=== PATIENT | male | born 1945 | race Caucasian/White ===

== ENCOUNTER 2016-09-25 12:15 | Emergency (ER) | payer MEDICARE, OTHER ==
[2016-09-25 12:30] VITALS: BP 120/73
--- NOTE | 2016-09-25 14:17 | EDM.PDOC ---
ED HPI GENERAL MEDICAL PROBLEM - General Chief Complaint: Chest Pain Stated Complaint: CHEST DISCOMFORT Time Seen by Provider: 09/25/16 12:28 Source of Information: Reports: Patient History Limitations: Reports: No Limitations - History of Present Illness INITIAL COMMENTS - FREE TEXT/NARRATIVE: History of present illness: [70-year-old male presenting with an episode of chest pain actually to that occurred this morning that were very brief lasting perhaps 5 minutes. They were pressure-like in nature and resolve spontaneously he called the conventions reservationist that was elderly companion for his conventions reservationist a deniz Freire and they suggested he come in. He was recently switched from flecainide and diltiazem to sotalol after having an angiogram at which time stenting was not undertaken but there may have been some sort of cleaning out of the artery "that occurred according to the patient and his . He was also told that there was evidence that she has had heart damage in the past. But no further clarification of exactly what is meant by that is available to me here today. 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 Past medical history: As per history of present illness and as reviewed below otherwise noncontributory. Surgical history: As per history of present illness and as reviewed below otherwise noncontributory. Social history: No reported history of drug or alcohol abuse. Family history: As per history of present illness and as reviewed below otherwise noncontributory. Physical exam: HEENT: Atraumatic, normocephalic, pupils reactive, negative for conjunctival pallor or scleral icterus, mucous membranes moist, throat clear, neck supple, nontender, trachea midline. Lungs: Clear to auscultation, breath sounds equal bilaterally, chest nontender. Heart: S1S2, regular, negative for clicks, rubs, or JVD. Abdomen: Soft, nondistended, nontender. Negative for masses or hepatosplenomegaly. Negative for costovertebral tenderness. Pelvis: Stable nontender. Genitourinary: Deferred. Rectal: Deferred. Extremities: Atraumatic, negative for cords or calf pain. Neurovascular unremarkable. Neuro: Awake, alert, oriented. Cranial nerves II through XII unremarkable. Cerebellum unremarkable. Motor and sensory unremarkable throughout. Exam nonfocal. Diagnostics: [EKG shows no current of injury or ischemia. He was slightly bradycardic but that is his baseline. He is QT interval was acceptable. Troponin was negative d- dimer was negative CBC complete medical panel were unremarkable. Chest x-ray was also unremarkable] Therapeutics: [] Impression: [Atypical chest pain] Plan: [I discussed with him the more typical symptoms of coronary artery disease and angina and coronary artery syndrome and if these occur he is to return to the emergency room. He does have a follow-up appointment with his conventions reservationist in October.] Definitive disposition and diagnosis as appropriate pending reevaluation and review of above. chest Pain Score (Numeric/FACES): 1 - Related Data Allergies Allergy/AdvReac Type Severity Reaction Status Date / Time atorvastatin calcium Allergy Other Verified 09/25/16 12:30 [From Lipitor] morphine Allergy Bradycardia Verified 09/25/16 12:30 Home Meds: Home Meds Aspirin 81 mg PO DAILY 11/30/15 [History] Sotalol [Betapace, Sorine] 80 mg PO BID 09/25/16 [History] Past Medical History HEENT History: Reports: Hard of Hearing, Impaired Vision Cardiovascular History: Reports: Arrhythmia, [place] Genitourinary History: Reports: Renal Calculus Neurological History: Reports: TIA Oncologic (Cancer) History: Reports: Colon - Infectious Disease History Infectious Disease History: Reports: Chicken Pox - Past Surgical History Cardiovascular Surgical History: Reports: Other (See Below) Other Cardiovascular Surgeries/Procedures: angiogram GI Surgical History: Reports: Hernia, Abdominal Musculoskeletal Surgical History: Reports: Arthroscopic Knee Social & Family History - Tobacco Use Smoking Status *Q: Never Smoker - Caffeine Use Caffeine Use: Reports: Coffee - Alcohol Use Days Per Week of Alcohol Use: 5 Number of Drinks Per Day: 1 Total Drinks Per Week: 5 - Recreational Drug Use Recreational Drug Use: No ED ROS GENERAL - Review of Systems Review Of Systems: ROS reveals no pertinent complaints other than HPI. ED EXAM, GENERAL - Physical Exam Exam: See Below Course - Vital Signs Last Recorded V/S: Last Vital Signs Temp 36.7 C 09/25/16 12:29 Pulse 51 L 09/25/16 12:29 Resp 16 09/25/16 12:29 BP 120/73 09/25/16 12:29 Pulse Ox 98 09/25/16 12:29 - Orders/Labs/Meds Orders: Active Orders 24 hr Category Date Time Status EKG Documentation Completion [RC] ASDIRECTED Care 09/25/16 12:35 Active Chest 1V Frontal [CR] Stat Exams 09/25/16 12:35 Taken EKG 12 Lead [EK] Stat Ther 09/25/16 12:35 Ordered Labs: Laboratory Tests 09/25/16 09/25/16 09/25/16 Range/Units 12:49 12:49 12:49 WBC 6.9 (4.5-11.0) K/uL RBC 4.52 (4.30-5.90) M/uL Hgb 14.7 (12.0-15.0) g/dL Hct 42.6 (40.0-54.0) % MCV 94 (80-98) fL MCH 33 H (27-31) pg MCHC 35 (32-36) % Plt Count 178 (150-400) K/uL Neut % (Auto) 64 (36-66) % Lymph % (Auto) 23 L (24-44) % Harris % (Auto) 10 H (2-6) % Eos % (Auto) 3 (2-4) % Baso % (Auto) 1 (0-1) % PT 10.7 (9.5-12.0) sec INR 1.00 (0.80-1.20) D-Dimer, Quantitative < 100 (0.0-400.0) ng/mL Sodium (140-148) mmol/L Potassium (3.6-5.2) mmol/L Chloride (100-108) mmol/L Carbon Dioxide (21-32) mmol/L Anion Gap (5.0-14.0) mmol/L BUN (7-18) mg/dL Creatinine (0.8-1.3) mg/dL Est Cr Clr Drug Dosing mL/min Estimated GFR (MDRD) (>60) Glucose (74-106) mg/dL Calcium (8.5-10.1) mg/dL Total Bilirubin (0.2-1.0) mg/dL AST (15-37) U/L ALT (12-78) U/L Alkaline Phosphatase (46-116) U/L Troponin I (0.000-0.056) ng/mL [id number] Pept (5-125) pg/mL Total Protein (6.4-8.2) g/dL Albumin (3.4-5.0) g/dL Globulin (2.3-3.5) g/dL Albumin/Globulin Ratio (1.2-2.2) 09/25/16 Range/Units 12:49 WBC (4.5-11.0) K/uL RBC (4.30-5.90) M/uL Hgb (12.0-15.0) g/dL Hct (40.0-54.0) % MCV (80-98) fL MCH (27-31) pg MCHC (32-36) % Plt Count (150-400) K/uL Neut % (Auto) (36-66) % Lymph % (Auto) (24-44) % Harris % (Auto) (2-6) % Eos % (Auto) (2-4) % Baso % (Auto) (0-1) % PT (9.5-12.0) sec INR (0.80-1.20) D-Dimer, Quantitative (0.0-400.0) ng/mL Sodium 142 (140-148) mmol/L Potassium 4.1 (3.6-5.2) mmol/L Chloride 105 (100-108) mmol/L Carbon Dioxide 31 (21-32) mmol/L Anion Gap 6.3 (5.0-14.0) mmol/L BUN 15 (7-18) mg/dL Creatinine 1.0 (0.8-1.3) mg/dL Est Cr Clr Drug Dosing 76.52 mL/min Estimated GFR (MDRD) > 60 (>60) Glucose 91 (74-106) mg/dL Calcium 7.9 L (8.5-10.1) mg/dL Total Bilirubin 0.6 (0.2-1.0) mg/dL AST 21 (15-37) U/L ALT 26 (12-78) U/L Alkaline Phosphatase 79 (46-116) U/L Troponin I < 0.017 (0.000-0.056) ng/mL Nid-W-Bwcsonskpja Pept 134 H (5-125) pg/mL Total Protein 6.4 (6.4-8.2) g/dL Albumin 3.1 L (3.4-5.0) g/dL Globulin 3.3 (2.3-3.5) g/dL Albumin/Globulin Ratio 0.9 L (1.2-2.2) Departure - Departure Time of Disposition: 14:16 Disposition: Home, Self-Care 01 Condition: Good Clinical Impression: Atypical chest pain Forms: ED Department Discharge Additional Instructions: It was a pleasure to meet you when I wish you the best in the future. As we discussed if he develops symptoms that there are more typical for heart pains then you will need to return to the emergency room for evaluation. Thank you for your service to our country. - My Orders Last 24 Hours: My Active Orders 09/25/16 12:35 EKG Documentation Completion [RC] ASDIRECTED Chest 1V Frontal [CR] Stat EKG 12 Lead [EK] Stat - Assessment/Plan Last 24 Hours: My Active Orders 09/25/16 12:35 EKG Documentation Completion [RC] ASDIRECTED Chest 1V Frontal [CR] Stat EKG 12 Lead [EK] Stat
--- NOTE | 2016-09-26 13:23 | CR ---
Chest 1V Frontal INDICATION: chest pain FINDINGS: Negative AP portable chest x-ray.
== END 2016-09-25 14:30 | disposition home or self-care (01) ==
LOC: JP.ED 12:15
DX: R07.89 Other chest pain (principal); H54.7 Unspecified visual loss; I25.2 Old myocardial infarction; Z87.442 Personal history of urinary calculi; Z86.73 Personal history of transient ischemic attack (TIA), and cerebral infarction without residual deficits; Z79.82 Long term (current) use of aspirin; Z98.890 Other specified postprocedural states; Z88.5 Allergy status to narcotic agent; Z88.8 Allergy status to other drugs, medicaments and biological substances
CPT/HCPCS: 36415; 71010; 71010-26; 80053; 83880; 84484; 85025; 85379; 85610; 93005; 93010; 99283; 99285-25

== ENCOUNTER 2016-11-30 17:52 | Emergency (ER) | payer MEDICARE, OTHER ==
[2016-11-30] MEDS ORDERED: diphenhydrAMINE 50 MG/ML SDV IVPUSH ONE (18:27)
[2016-11-30] MEDS ORDERED: Sodium Chloride 0.9% 10 ML Syringe FLUSH PRN (18:27)
[2016-11-30] MEDS ORDERED: Sodium Chloride 0.9% 1,000 ML IV SCH (19:00)
[2016-11-30 19:56] VITALS: BP 139/84
--- NOTE | 2016-11-30 20:35 | EDM.PDOC ---
ED HPI GENERAL MEDICAL PROBLEM - General Chief Complaint: Bite:Animal, Insect Stated Complaint: STUNG BY BEE IN MOUTH Time Seen by Provider: 11/30/16 18:17 Source of Information: Reports: Patient History Limitations: Reports: No Limitations - History of Present Illness INITIAL COMMENTS - FREE TEXT/NARRATIVE: History of present illness: [71-year-old male presents with a bee sting in his mouth 3. He was sitting outside sipping on some wine was of the is class and start him on the right lower lip and on the tongue couple times. He presents here with a swollen lip and swollen tongue concerned about his airway. His states that he reacts little more severely to bee stings then most people but has not had an anaphylactic reaction to bee stings.] Review of systems: As per history of present illness and below otherwise all systems reviewed and negative. Past medical history: As per history of present illness and as reviewed below otherwise noncontributory. Surgical history: As per history of present illness and as reviewed below otherwise noncontributory. Social history: No reported history of drug or alcohol abuse. Family history: As per history of present illness and as reviewed below otherwise noncontributory. Physical exam: HEENT: Atraumatic, normocephalic, his tongue was swollen slightly and his right lower lip was also swollen twice the size of the normal he also had some swelling of the soft palate posteriorly but his airway was open and he was in no respiratory distress Lungs: Clear to auscultation, breath sounds equal bilaterally Heart: S1S2, regular, negative for clicks, rubs, or JVD. Abdomen: Soft, nondistended, nontender. Negative for masses or hepatosplenomegaly Pelvis: Stable nontender. Genitourinary: Deferred. Rectal: Deferred. Extremities: Atraumatic Neurovascular unremarkable. Neuro: Awake, alert, oriented. Exam nonfocal. Diagnostics: [] Therapeutics: [Patient received IV fluids and IV Benadryl and was observed in felt the swelling subsiding and abating while here. ] Impression: [Bee sting] Plan: [Patient is provided with prednisone 10 mg 2 by mouth daily for 3 days. He can also use [id number] Benadryl return to the ER if he develops any respiratory distress] Definitive disposition and diagnosis as appropriate pending reevaluation and review of above. Face Pain Score (Numeric/FACES): 5 - Related Data Allergies Allergy/AdvReac Type Severity Reaction Status Date / Time atorvastatin calcium Allergy Other Verified 09/25/16 12:30 [From Lipitor] morphine Allergy Bradycardia Verified 09/25/16 12:30 Home Meds: Home Meds Aspirin 81 mg PO DAILY 11/30/15 [History] Sotalol [Betapace, Sorine] 80 mg PO BID 09/25/16 [History] Past Medical History HEENT History: Reports: Hard of Hearing, Impaired Vision Cardiovascular History: Reports: Arrhythmia, [place] Genitourinary History: Reports: Renal Calculus Neurological History: Reports: TIA Oncologic (Cancer) History: Reports: Colon - Infectious Disease History Infectious Disease History: Reports: Chicken Pox, Measles, Mumps - Past Surgical History Cardiovascular Surgical History: Reports: Other (See Below) Other Cardiovascular Surgeries/Procedures: angiogram GI Surgical History: Reports: Hernia, Abdominal Musculoskeletal Surgical History: Reports: Arthroscopic Knee Social & Family History - Tobacco Use Smoking Status *Q: Never Smoker - Caffeine Use Caffeine Use: Reports: None - Alcohol Use Days Per Week of Alcohol Use: 5 Number of Drinks Per Day: 1 Total Drinks Per Week: 5 - Recreational Drug Use Recreational Drug Use: No ED ROS GENERAL - Review of Systems Review Of Systems: ROS reveals no pertinent complaints other than HPI. ED EXAM, ANIMAL BITE - Physical Exam Exam: See Below Course - Vital Signs Last Recorded V/S: Last Vital Signs Temp 36.1 C 11/30/16 18:08 Pulse 56 L 11/30/16 19:56 Resp 16 11/30/16 18:08 BP 139/84 11/30/16 19:56 Pulse Ox 96 11/30/16 19:56 - Orders/Labs/Meds Orders: Active Orders 24 hr Category Date Time Status Sodium Chloride 0.9% [Normal Saline] 1,000 ml Med 11/30/16 19:00 Active IV ASDIRECTED Sodium Chloride 0.9% [Saline Flush] Med 11/30/16 18:27 Active 10 ml FLUSH ASDIRECTED PRN Saline Lock Insert [OM.PC] Stat Oth 11/30/16 18:27 Ordered Medication Orders Sodium Chloride (Normal Saline) 1,000 mls @ 500 mls/hr IV ASDIRECTED DAVID Last Admin: 11/30/16 18:59 Dose: 500 mls/hr Sodium Chloride (Saline Flush) 10 ml FLUSH ASDIRECTED PRN PRN Reason: Keep Vein Open Last Admin: 11/30/16 18:45 Dose: 10 ml Meds: Medications Generic Name Dose Route Start Last Admin Trade Name Freq PRN Reason Stop Dose Admin Sodium Chloride 1,000 mls @ 500 mls/hr 11/30/16 19:00 11/30/16 18:59 Normal Saline IV 500 mls/hr ASDIRECTED DAVID Administration Sodium Chloride 10 ml 11/30/16 18:27 11/30/16 18:45 Saline Flush FLUSH 10 ml ASDIRECTED PRN Administration Keep Vein Open Discontinued Medications Generic Name Dose Route Start Last Admin Trade Name Filipeq PRN Reason Stop Dose Admin Diphenhydramine HCl 50 mg 11/30/16 18:27 11/30/16 18:45 Benadryl IVPUSH 11/30/16 18:28 50 mg ONETIME ONE Administration Departure - Departure Time of Disposition: 20:34 Disposition: Home, Self-Care 01 Condition: Good Clinical Impression: Bee sting Qualifiers: Encounter type: initial encounter Injury intent: accidental or unintentional Qualified Code(s): T63.441A - Toxic effect of venom of bees, accidental ( unintentional), initial encounter - Discharge Information Referrals: Damien Velázquez PA-C [Primary Care Provider] - Additional Instructions: You can use [id number] Benadryl in addition to the prednisone that were providing for you for the swelling that you're experiencing from the bee stings. Please return to the ER if you develop any trouble breathing. - My Orders Last 24 Hours: My Active Orders 11/30/16 18:27 Sodium Chloride 0.9% [Saline Flush] 10 ml FLUSH ASDIRECTED PRN Saline Lock Insert [OM.PC] Stat 11/30/16 19:00 Sodium Chloride 0.9% [Normal Saline] 1,000 ml IV ASDIRECTED - Assessment/Plan Last 24 Hours: My Active Orders 11/30/16 18:27 Sodium Chloride 0.9% [Saline Flush] 10 ml FLUSH ASDIRECTED PRN Saline Lock Insert [OM.PC] Stat 11/30/16 19:00 Sodium Chloride 0.9% [Normal Saline] 1,000 ml IV ASDIRECTED
== END 2016-11-30 20:44 | disposition home or self-care (01) ==
LOC: JP.ED 17:52
DX: T63.441A Toxic effect of venom of bees, accidental (unintentional), initial encounter (principal); R22.9 Localized swelling, mass and lump, unspecified; I25.2 Old myocardial infarction; H54.7 Unspecified visual loss; Z86.73 Personal history of transient ischemic attack (TIA), and cerebral infarction without residual deficits; Z79.82 Long term (current) use of aspirin
CPT/HCPCS: 96361; 96374; 99283; J1200; J7040; J7050

== ENCOUNTER 2017-10-08 05:48 | Emergency (ER) | payer MEDICARE, OTHER ==
[2017-10-08] MEDS ORDERED: Sodium Chloride 0.9% 10 ML Syringe FLUSH PRN (05:55)
[2017-10-08] MEDS ORDERED: methylPREDNISolone Sodium Succinate 125 MG/2 ML SDV IVPUSH ONE (05:55)
[2017-10-08] MEDS ORDERED: EPINEPHrine 1 MG/ML SDV IM ONE (05:55)
[2017-10-08] MEDS ORDERED: diphenhydrAMINE 50 MG/ML SDV IVPUSH ONE (05:55)
--- NOTE | 2017-10-08 06:15 | EDM.PDOC ---
ED HPI GENERAL MEDICAL PROBLEM - General Chief Complaint: Allergic Reaction Stated Complaint: REACTION Time Seen by Provider: 10/08/17 05:54 Source of Information: Reports: Patient History Limitations: Reports: No Limitations - History of Present Illness INITIAL COMMENTS - FREE TEXT/NARRATIVE: This man complains of an acute allergic reaction. His lip is swelling and his throat is closing up. It's getting a little hard to breathe. It has happened before. He thought maybe it was some oil he put on his 's back last pm. But later said that it started when he started taking sotalol. He stopped sotalol a few days ago. - Related Data Allergies Allergy/AdvReac Type Severity Reaction Status Date / Time atorvastatin calcium Allergy Other Verified 09/25/16 12:30 [From Lipitor] morphine Allergy Bradycardia Verified 09/25/16 12:30 sotalol Allergy Facial Verified 10/08/17 06:15 Swelling Home Meds: Home Meds Aspirin 81 mg PO DAILY 11/30/15 [History] Sotalol [Betapace, Sorine] 80 mg PO BID 09/25/16 [History] Past Medical History HEENT History: Reports: Hard of Hearing, Impaired Vision Cardiovascular History: Reports: Arrhythmia, [place] Genitourinary History: Reports: Renal Calculus Neurological History: Reports: TIA Oncologic (Cancer) History: Reports: Colon - Infectious Disease History Infectious Disease History: Reports: Chicken Pox, Measles, Mumps - Past Surgical History Cardiovascular Surgical History: Reports: Other (See Below) Other Cardiovascular Surgeries/Procedures: angiogram GI Surgical History: Reports: Hernia, Abdominal Musculoskeletal Surgical History: Reports: Arthroscopic Knee Social & Family History - Caffeine Use Caffeine Use: Reports: None ED ROS ALLERGIC REACTION - Review of Systems Review Of Systems: ROS reveals no pertinent complaints other than HPI. ED EXAM GENERAL NO PERIP PULSE - Physical Exam Exam: See Below Exam Limited By: No Limitations General Appearance: Alert, WD/WN, Mild Distress Eye Exam: Bilateral Eye: Normal Inspection Nose: Normal Inspection Throat/Mouth: Other (swelling RT side upper lip. Slight swelling uf uvula. voice a little hoarse. No oropharyngeal mucosal edema). No: Normal Lips, Normal Oropharynx Neck: Other (no definite stridor) Respiratory/Chest: Lungs Clear Cardiovascular: Regular Rate, Rhythm Neurological: Alert, Oriented Skin Exam: Warm, Dry Course - Vital Signs Last Recorded V/S: Last Vital Signs Temp 36.4 C 10/08/17 06:00 Pulse 56 L 10/08/17 06:50 Resp 15 10/08/17 06:50 BP 133/72 10/08/17 06:50 Pulse Ox 95 10/08/17 06:50 - Orders/Labs/Meds Orders: Active Orders 24 hr Category Date Time Status Sodium Chloride 0.9% [Saline Flush] Med 10/08/17 05:55 Active 10 ml FLUSH ASDIRECTED PRN Saline Lock Insert [OM.PC] Urgent Oth 10/08/17 05:55 Ordered Medication Orders Sodium Chloride (Saline Flush) 10 ml FLUSH ASDIRECTED PRN PRN Reason: Keep Vein Open Last Admin: 10/08/17 06:02 Dose: 10 ml Meds: Medications Generic Name Dose Route Start Last Admin Trade Name Freq PRN Reason Stop Dose Admin Sodium Chloride 10 ml 10/08/17 05:55 10/08/17 06:02 Saline Flush FLUSH 10 ml ASDIRECTED PRN Administration Keep Vein Open Discontinued Medications Generic Name Dose Route Start Last Admin Trade Name Freq PRN Reason Stop Dose Admin Diphenhydramine HCl 50 mg 10/08/17 05:55 10/08/17 06:01 Benadryl IVPUSH 10/08/17 05:56 50 mg ONETIME ONE Administration Epinephrine HCl 0.3 mg 10/08/17 05:55 10/08/17 06:01 Adrenalin IM 10/08/17 05:56 0.3 mg ONETIME ONE Administration Methylprednisolone Sodium Succinate 125 mg 10/08/17 05:55 10/08/17 06:02 Solu-Medrol IVPUSH 10/08/17 05:56 125 mg ONETIME ONE Administration - Re-Assessments/Exams Free Text/Narrative Re-Assessment/Exam: 10/08/17 06:14 Gave epi 0.3 mg IM, Benadryl 50 mg and solumedrol 125 mg IV. Free Text/Narrative Re-Assessment/Exam: 10/08/17 07:16Symptoms much better. less swelling to lip. Departure - Departure Time of Disposition: 07:18 Disposition: Home, Self-Care 01 Condition: Fair Clinical Impression: Angioedema - Discharge Information Referrals: PCP,None [Primary Care Provider] - Forms: ED Department Discharge Additional Instructions: Take prednisone 20 mg, 2 tabs daily for 5 days. May take separarately or all at once Take Benadryl 50 mg 4 times per day for 1-2 days. Causes sedation. See your doctor if problem continues or return to the ER. - My Orders Last 24 Hours: My Active Orders 10/08/17 05:55 Sodium Chloride 0.9% [Saline Flush] 10 ml FLUSH ASDIRECTED PRN Saline Lock Insert [OM.PC] Urgent - Assessment/Plan Last 24 Hours: My Active Orders 10/08/17 05:55 Sodium Chloride 0.9% [Saline Flush] 10 ml FLUSH ASDIRECTED PRN Saline Lock Insert [OM.PC] Urgent
[2017-10-08 06:52] VITALS: BP 133/72
== END 2017-10-08 08:02 | disposition home or self-care (01) ==
LOC: JP.ED 05:48
DX: T78.3XXA Angioneurotic edema, initial encounter (principal); Z88.5 Allergy status to narcotic agent; Z88.8 Allergy status to other drugs, medicaments and biological substances; Z79.899 Other long term (current) drug therapy
CPT/HCPCS: 96372; 96374; 96375; 99283; J0171; J1200; J2930; J7050

== ENCOUNTER 2017-12-16 13:31 | Emergency (ER) | payer MEDICARE, OTHER ==
--- NOTE | 2017-12-16 14:38 | EDM.PDOC ---
ED HPI GENERAL MEDICAL PROBLEM - General Chief Complaint: General Stated Complaint: LEFT ARM BLEEDING Time Seen by Provider: 12/16/17 14:10 Source of Information: Reports: Patient History Limitations: Reports: No Limitations - History of Present Illness INITIAL COMMENTS - FREE TEXT/NARRATIVE: 72-year-old male with recent ablation for atrial fibrillation currently on eliquis presents with concerns of swelling of the left forearm He reports that he struck his left forearm opening a door approximately 45 minutes prior to arrival in the ED. He has noted some swelling and bruising of the lateral part of his wrist and forearm since this time. He notes some tingling sensation in his thumb and the back of his hand as well on the left. No significant pain. He reports the history of bleeding easily prior to be putting on his current anticoagulant. - Related Data Allergies Allergy/AdvReac Type Severity Reaction Status Date / Time atorvastatin calcium Allergy Other Verified 09/25/16 12:30 [From Lipitor] morphine Allergy Bradycardia Verified 09/25/16 12:30 sotalol Allergy Facial Verified 10/08/17 06:15 Swelling Home Meds: Home Meds Amiodarone [Cordarone] 1 tab PO BID 12/16/17 [History] Apixaban [Eliquis] 1 tab PO BID 12/16/17 [History] Past Medical History HEENT History: Reports: Hard of Hearing, Impaired Vision Cardiovascular History: Reports: Arrhythmia, [place] Genitourinary History: Reports: Renal Calculus Neurological History: Reports: TIA Oncologic (Cancer) History: Reports: Colon - Infectious Disease History Infectious Disease History: Reports: Chicken Pox, Measles, Mumps - Past Surgical History Cardiovascular Surgical History: Reports: Other (See Below) Other Cardiovascular Surgeries/Procedures: angiogram, ablaision GI Surgical History: Reports: Hernia, Abdominal, Polypectomy Musculoskeletal Surgical History: Reports: Arthroscopic Knee Social & Family History - Family History Family Medical History: Noncontributory - Tobacco Use Smoking Status *Q: Never Smoker Second Hand Smoke Exposure: No - Caffeine Use Caffeine Use: Reports: Coffee - Alcohol Use Days Per Week of Alcohol Use: 3 Number of Drinks Per Day: 1 Total Drinks Per Week: 3 - Recreational Drug Use Recreational Drug Use: No ED ROS GENERAL - Review of Systems Review Of Systems: See Below Constitutional: Denies: Fever, Chills HEENT: Reports: No Symptoms Respiratory: Denies: Shortness of Breath Cardiovascular: Denies: Chest Pain Endocrine: Reports: No Symptoms GI/Abdominal: Denies: Abdominal Pain : Reports: No Symptoms Musculoskeletal: Reports: Other (swelling of the wrist) Skin: Reports: Bruising Neurological: Reports: Tingling. Denies: Dizziness, Headache Psychiatric: Reports: No Symptoms Hematologic/Lymphatic: Reports: No Symptoms Immunologic: Reports: No Symptoms ED EXAM, GENERAL - Physical Exam Exam: See Below Exam Limited By: No Limitations General Appearance: Alert, WD/WN, No Apparent Distress Eye Exam: Bilateral Eye: PERRL Ears: Normal External Exam Nose: Normal Inspection Throat/Mouth: Normal Inspection Head: Atraumatic, Normocephalic Neck: Normal Inspection, Non-Tender, Full Range of Motion Respiratory/Chest: No Respiratory Distress, Lungs Clear Cardiovascular: Regular Rate, Rhythm GI/Abdominal: Normal Bowel Sounds, Soft Back Exam: Normal Inspection Extremities: Other (bruising anterior and lateral aspect of distal forearm with minimal swelling. Forearm is soft. Sensation to light touch intact throughout hand. No pain with movement of the wrist, full strength in the hand. No tenderness to palpation ) Neurological: Alert, Oriented, CN II-XII Intact Course - Re-Assessments/Exams Free Text/Narrative Re-Assessment/Exam: 72 yo on lazarus presents with concerns of bruising and small hematoma of his distal forearm after minor trauma Currently describing mild paresthesias but no other signs or symptoms of compartment syndrome present. No concern for fracture Plan observe him in the ED for serial examinations for evidence of developing compartment syndrome however suspicion for this is low 12/16/17 14:41 Free Text/Narrative Re-Assessment/Exam: Stable re-examination of the extremity Plan for discharge, will return for significant changes in pain, swelling, sensation which would raise concern for compartment syndrome or significant vascular injury 12/16/17 15:33 Departure - Departure Time of Disposition: 15:35 Disposition: Home, Self-Care 01 Clinical Impression: Bruising of wrist - Discharge Information Instructions: Contusion, [id number] Referrals: PCP,None [Primary Care Provider] - Forms: ED Department Discharge Additional Instructions: As discussed, please return for worsening pain, loss of sensation in the hand, significant expansion of the swelling of your wrist, or other symptoms which are concerning to you.
[2017-12-16 16:02] VITALS: BP 132/81
== END 2017-12-16 15:50 | disposition home or self-care (01) ==
LOC: JP.ED 13:31
DX: S60.212A Contusion of left wrist, initial encounter (principal); S50.12XA Contusion of left forearm, initial encounter; Z88.8 Allergy status to other drugs, medicaments and biological substances; Z88.5 Allergy status to narcotic agent; W23.0XXA Caught, crushed, jammed, or pinched between moving objects, initial encounter
CPT/HCPCS: 99283; 99284

== ENCOUNTER 2017-12-16 17:27 | Emergency (ER) | payer MEDICARE, OTHER ==
[2017-12-16 17:35] VITALS: BP 151/79
--- NOTE | 2017-12-16 18:23 | EDM.PDOC ---
ED HPI GENERAL MEDICAL PROBLEM - General Chief Complaint: General Stated Complaint: SURGERY WAS HERE TOLD TO COME BACK Time Seen by Provider: 12/16/17 17:40 Source of Information: Reports: Patient History Limitations: Reports: No Limitations - History of Present Illness INITIAL COMMENTS - FREE TEXT/NARRATIVE: 72 yo with history of recent a-fib ablation presents with concerns of bruising of the left thigh Was seen in the ED earlier today for bruising of left wrist after minor trauma from a door - see separate note He noticed the bruising to the thigh after he got home from the ED today He is not sure about trauma to the thigh today - perhaps struck it against the door. No pain or sensation changes associated with the bruising. He is currently on eliquis. Reports history of bruising/bleeding easily prior to initiation of anticoagulation, was previously managed on ASA only for a-fib because of this. 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 No prior clotting history Left Arm Pain Score (Numeric/FACES): 2 - Related Data Allergies Allergy/AdvReac Type Severity Reaction Status Date / Time atorvastatin calcium Allergy Other Verified 09/25/16 12:30 [From Lipitor] morphine Allergy Bradycardia Verified 09/25/16 12:30 sotalol Allergy Facial Verified 10/08/17 06:15 Swelling Home Meds: Home Meds Amiodarone [Cordarone] 1 tab PO BID 12/16/17 [History] Apixaban [Eliquis] 1 tab PO BID 12/16/17 [History] Past Medical History HEENT History: Reports: Hard of Hearing, Impaired Vision Cardiovascular History: Reports: Arrhythmia, NC Genitourinary History: Reports: Renal Calculus Neurological History: Reports: TIA Oncologic (Cancer) History: Reports: Colon - Infectious Disease History Infectious Disease History: Reports: Chicken Pox, Measles, Mumps - Past Surgical History Cardiovascular Surgical History: Reports: Other (See Below) Other Cardiovascular Surgeries/Procedures: angiogram, ablaision GI Surgical History: Reports: Hernia, Abdominal, Polypectomy Musculoskeletal Surgical History: Reports: Arthroscopic Knee Social & Family History - Family History Family Medical History: Noncontributory - Tobacco Use Smoking Status *Q: Never Smoker - Caffeine Use Caffeine Use: Reports: Coffee - Alcohol Use Days Per Week of Alcohol Use: 1 Number of Drinks Per Day: 1 Total Drinks Per Week: 1 - Recreational Drug Use Recreational Drug Use: No ED ROS GENERAL - Review of Systems Review Of Systems: See Below Constitutional: Denies: Fever, Chills HEENT: Reports: No Symptoms Respiratory: Denies: Shortness of Breath Cardiovascular: Denies: Chest Pain Endocrine: Denies: Fatigue GI/Abdominal: Denies: Abdominal Pain, Black Stool, Nausea, Vomiting Musculoskeletal: Reports: No Symptoms Skin: Reports: No Symptoms Neurological: Reports: No Symptoms Psychiatric: Reports: No Symptoms Hematologic/Lymphatic: Reports: Easy Bleeding, Easy Bruising Immunologic: Reports: No Symptoms ED EXAM, GENERAL - Physical Exam Exam: See Below Exam Limited By: No Limitations General Appearance: Alert, No Apparent Distress Eye Exam: Bilateral Eye: EOMI, PERRL Ears: Normal External Exam Nose: Normal Inspection, Normal Mucosa Throat/Mouth: Normal Inspection Head: Atraumatic, Normocephalic Neck: Normal Inspection, Supple, Non-Tender Respiratory/Chest: No Respiratory Distress, Lungs Clear, Normal Breath Sounds Cardiovascular: Normal Peripheral Pulses, Regular Rate, Rhythm GI/Abdominal: Soft, Non-Tender Back Exam: Normal Inspection Extremities: Other (Left forearm wrapped in KAITLIN bandage, normal sensation, cap refill, no pain with motion in the left hand. Superficial bruising of the left inner thigh, compartments soft, no significant swelling, distal sensation and motion intact) Neurological: Alert, Oriented, CN II-XII Intact Psychiatric: Normal Affect Skin Exam: Warm, Dry, Ecchymosis Course - Vital Signs Last Recorded V/S: Last Vital Signs Temp 35.8 C 12/16/17 17:31 Pulse 62 12/16/17 17:31 Resp 16 12/16/17 17:31 BP 151/79 H 12/16/17 17:31 Pulse Ox - Re-Assessments/Exams Free Text/Narrative Re-Assessment/Exam: 72 yo presents now with bruising of the left thigh after being seen for left forearm bruising and swelling earlier today Currently anticoagulated after recent a-fib ablation No evidence of compartment syndrome or arterial injury in the extremities by exam. Informal point of care ultrasound of the left femoral artery without obvious pseudoaneursym or fluid collection Discussed case with patient's EP in [place] (MD Ena) Very high risk of stroke post-procedurally, would hold/reverse anticoagualtion for life threatening bleed only No role for reversal at this time. Safe for discharge Again counseled on return precautions regarding significant hematoma expansion, vascular compromise, or compartment syndrome. 12/16/17 18:40 Departure - Departure Time of Disposition: 18:24 Disposition: Home, Self-Care 01 Clinical Impression: Superficial bruising of thigh Qualifiers: Encounter type: initial encounter Laterality: left Qualified Code(s): S70.12XA - Contusion of left thigh, initial encounter - Discharge Information *PRESCRIPTION DRUG MONITORING PROGRAM REVIEWED*: No *COPY OF PRESCRIPTION DRUG MONITORING REPORT IN PATIENT SUBHASH: No Referrals: PCP,None [Primary Care Provider] - Additional Instructions: Please continue the cares to the area of bruising as discussed (ice, compression , elevation as able) Return to the emergency room for significant swelling, pain, or change in sensation in the extremity.
== END 2017-12-16 18:40 | disposition home or self-care (01) ==
LOC: JP.ED 17:27
DX: S70.12XA Contusion of left thigh, initial encounter (principal); S50.12XA Contusion of left forearm, initial encounter; S60.212A Contusion of left wrist, initial encounter; I25.2 Old myocardial infarction; Z88.8 Allergy status to other drugs, medicaments and biological substances; Z88.5 Allergy status to narcotic agent; W23.1XXA Caught, crushed, jammed, or pinched between stationary objects, initial encounter
CPT/HCPCS: 99283